=== PATIENT | male | born 1990 | race American Indian/Alaskan Native ===

== ENCOUNTER 2017-12-13 15:24 | Emergency (ER) | payer OTHER ==
[2017-12-13 15:34] VITALS: BP 136/72
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
--- NOTE | 2017-12-13 16:44 | XRay Report ---
FINAL REPORT PROCEDURE: XR RIBS UNI W PA CHEST 3+V RT TECHNIQUE: RIGHT rib radiographs, 3 views of the ribs, including PA chest. HISTORY: pain at right ribs 5 through 8 and right flank COMPARISON: No prior studies are available for comparison. FINDINGS: Heart: Normal. Mediastinum/Vessels: Normal. Lungs: Normal. Pleural space: Normal. Pneumothorax: None. Bony thorax/ribs: No significant abnormality. IMPRESSION: Negative examination.
[2017-12-13 17:24] LABS: Hemoglobin 16.1 gm/dl (11.8-15.2); Mean Corpuscular HGB Conc 34 % (32-34); Mean Corpuscular Hemoglobin 31 pg (28-32); Mean Corpuscular Volume 92 fl (84-94); Red Blood Count 5.25 M/mm3 (3.65-5.03); Red Cell Distribution Width 12.9 % (13.2-15.2)
[2017-12-13 17:30] LABS: BUN/Creatinine Ratio 21; Blood Urea Nitrogen 23 mg/dL (9-20); Calcium 9.1 mg/dL (8.4-10.2); Hemolysis Index 79
[2017-12-13 17:59] LABS: Platelet Count 12 K/mm3 (140-440)
[2017-12-13] MEDS ORDERED: PEPCID IV ONE (18:08)
[2017-12-13] MEDS ORDERED: BENADRYL IV ONE (18:21)
[2017-12-13 18:42] LABS: Basophils # (Auto) 0.1 K/mm3 (0.0-0.1); Basophils % (Auto) 0.9 % (0.0-1.8); Eosinophils # (Auto) 0.2 K/mm3 (0.0-0.4); Eosinophils % (Auto) 3.6 % (0.0-4.3); Hematocrit 46.5 % (35.5-45.6); Hemoglobin 15.7 gm/dl (11.8-15.2); Lymphocytes # (Auto) 1.7 K/mm3 (1.2-5.4); Lymphocytes % (Auto) 25.8 % (13.4-35.0); Mean Corpuscular HGB Conc 34 % (32-34); Mean Corpuscular Hemoglobin 31 pg (28-32); Mean Corpuscular Volume 93 fl (84-94); Monocytes # (Auto) 0.4 K/mm3 (0.0-0.8); Monocytes % (Auto) 5.7 % (0.0-7.3); Platelet Count 161 K/mm3 (140-440); Red Blood Count 5.03 M/mm3 (3.65-5.03); Red Cell Distribution Width 12.6 % (13.2-15.2)
[2017-12-13 18:48] LABS: Alanine Aminotransferase 20 units/L (7-56)
[2017-12-13 18:52] LABS: Bilirubin,Direct < 0.2 mg/dL (0-0.2)
--- NOTE | 2017-12-13 19:07 | Cat Scan Report ---
FINAL REPORT PROCEDURE: CT ABDOMEN PELVIS W CON TECHNIQUE: Computerized axial tomography of the abdomen and pelvis was performed after the IV injection of iodinated nonionic contrast. HISTORY: right flank pain s/p fall COMPARISON: No prior studies are available for comparison. FINDINGS: Lower Lung grady: No focal abnormality seen. Upper Abdomen: Gallbladder is contracted otherwise unremarkable. The liver shows no abnormality. No evidence of liver laceration. No discrete liver lesions are identified. The adrenal glands, the pancreas and spleen are unremarkable. Kidneys, Ureters and Urinary bladder: No abnormalities are identified. No evidence of renal laceration. Retroperitoneum: Abdominal aorta appears normal. No retroperitoneal hemorrhage visualized. Nonspecific subcentimeter lymph nodes are seen in the retroperitoneum. No pathologically enlarged lymph nodes are identified. Bowel: No focal bowel loop abnormalities are seen. No evidence of bowel obstruction or ascites. There is no free intraperitoneal gas. No abnormal fluid collections are identified. Normal-appearing appendix is seen in the right lower quadrant. Reproductive organs: Other: No acute bony abnormalities are identified. No acute fractures are seen. Postsurgical changes are partially visualized in the left femur with an intramedullary elizabeth partially visualized. IMPRESSION: No evidence of organ laceration or acute fracture. Postsurgical changes seen left femur as described No acute abnormalities are identified.
[2017-12-13] MEDS ORDERED: NACL 0.9% 1000 ML 1,000 ML IV ONE (19:33)
== END 2017-12-13 20:14 | disposition home or self-care (01) ==
LOC: ED 15:24
DX: S29.012A Strain of muscle and tendon of back wall of thorax, initial encounter (principal); S29.011A Strain of muscle and tendon of front wall of thorax, initial encounter; V29.9XXA Motorcycle rider (driver) (passenger) injured in unspecified traffic accident, initial encounter; Y93.89 Activity, other specified; Y99.8 Other external cause status; Y92.89 Other specified places as the place of occurrence of the external cause
CPT/HCPCS: 36415; 71101; 74177; 80048; 80074; 85025; 85027; 85730; 96361; 96374; 96375; 99284; J1200; J2930; J7030; Q9967

== ENCOUNTER 2018-11-27 17:49 | Emergency (ER) | payer OTHER ==
[2018-11-27] MEDS ORDERED: HALDOL IM PRN (18:24)
[2018-11-27] MEDS ORDERED: ATIVAN IM PRN (18:24)
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
[2018-11-27 18:54] LABS: Hematocrit 48.6 % (35.5-45.6); Hemoglobin 16.9 gm/dl (11.8-15.2); Mean Corpuscular HGB Conc 35 % (32-34); Mean Corpuscular Volume 89 fl (84-94); Platelet Count 170 K/mm3 (140-440); Red Blood Count 5.44 M/mm3 (3.65-5.03); Red Cell Distribution Width 12.3 % (13.2-15.2)
[2018-11-27 19:15] LABS: BUN/Creatinine Ratio 16; Blood Urea Nitrogen 21 mg/dL (9-20); Calcium 9.1 mg/dL (8.4-10.2); Hemolysis Index 20
[2018-11-27 20:55] LABS: Bilirubin,Urine NEG (Negative); Blood,Urine NEG (Negative); Color,Urine Yellow (Yellow); Mucus,Urine FEW /HPF; Protein,Urine <15 mg/dL mg/dL (Negative); Urobilinogen,Urine < 2.0 mg/dL (<2.0)
[2018-11-27 21:03] LABS: Amphetamine Screen,Urine PRESUMPTIVE NEGATIVE; Benzodiazepines Screen,Urine PRESUMPTIVE NEGATIVE; Cannabinoid Screen,Urine PRESUMPTIVE NEGATIVE; Cocaine Screen,Urine PRESUMPTIVE NEGATIVE; Methadone Screen,Urine PRESUMPTIVE NEGATIVE; Opiate Screen,Urine PRESUMPTIVE NEGATIVE
[2018-11-28] MEDS ORDERED: GEODON IM ONE (15:16)
[2018-11-28] MEDS ORDERED: WATER FOR INJ Sterile (PF) 10 ML ONE (15:16)
[2018-11-28] MEDS ORDERED: GEODON IM PRN (15:43)
[2018-11-29 13:50] VITALS: BP 134/84
[2018-11-30] MEDS ORDERED: ZONISAMIDE 400 MG PO SCH (22:00)
== END 2018-11-29 19:17 ==
LOC: EEVIPCON 17:49 → ED 17:49
DX: F20.9 Schizophrenia, unspecified (principal)
CPT/HCPCS: 36415; 80048; 80307; 81001; 82375; 82550; 82805; 83735; 85027; 96372; 99285; G0480; J1630; J2060; J3486; 80320